=== PATIENT | female | born 1965 | race Two or more races ===

== ENCOUNTER 2023-02-04 14:53 | Emergency (ER) | payer OTHER ==
[~2023-02-04] VITALS: Ht 160 cm; Wt 102.1 kg
[2023-02-04] MEDS ORDERED: SYNTHROID100 MCG PO (15:14)
[2023-02-04] MEDS ORDERED: ZESTORETIC 20-1 EAC1 PO (15:14)
[2023-02-04 17:20] LABS: HEMATOCRIT 41.1 % (36.0-45.00); HEMOGLOBIN 14.2 g/dL (12.0-15.00); MEAN CELL VOLUME 84.1 fL (80.00-100.00); MEAN CORPUSCULAR HEMOGLOBIN 29.1 pg (27.00-32.0); MEAN CORPUSCULAR HGB CONC 34.6 g/dl (32.0-36.0); PLATELET COUNT 363 K/uL (150-450); RED BLOOD COUNT 4.89 M/uL (4.00-6.00); RED CELL DISTRIBUTION WIDTH 14.1 % (11.5-14.5)
[2023-02-04 17:24] LABS: CALCIUM 9.4 mg/dL (8.5-10.1); CREATININE SERUM 1.45 mg/dL (0.55-1.02); GFR 37.49; POTASSIUM 3.31 mEq/L (3.5-5.1)
== END 2023-02-04 19:29 | disposition home or self-care (01) ==
LOC: ER 14:53
PROVIDERS: General Practice
DX: R55 Syncope and collapse (principal); Z88.6 Allergy status to analgesic agent